=== PATIENT | female | born 1985 | race Caucasian/White ===

== ENCOUNTER → 2017-02-28 | Outpatient (CLI) | payer BC ==
[~2017-02-28] MED LIST: BIRTH CONTROL PILL; CEFD300C PO; NORG1TAB15 PO; PHEN-483 PO
[2017-02-28 15:39] VITALS: BP 146/98
--- NOTE | 2017-02-28 15:39 | Urgent Care T Sheet Gen (E) ---
Intake General Temperature (Fahrenheit): 98.1 Pulse: 123 Blood Pressure Systolic: 146 Blood Pressure Diastolic: 98 (took decongestant without taking her daily BP med ) Respirations: 20 SPO2: 96 Description of Symptoms Patient presents with illness for over a week. Notes nasal congestion, sweating , malaise and mild cough. No documented fever but has felt warm. Been taking Mucinex D and NyQuil. Didn't take her bisoprolol med this AM but took Mucinex D. History of Present Illness Allergies: Coded Allergies: No Known Drug Allergies (Unverified , 10/28/14) Home Meds Reported Medications Norgestimate-Ethinyl Estradiol (Tri-Sprintec)1 Each Tablet1 Tab PO DAILY 10/29/14 Respiratory Constitutional Symptoms: No Fever, Malaise EENTM: Nose Congestion Throat pain Respiratory: Cough Cardiovascular: No symptoms reported Gastrointestinal/Abdominal: No symptoms reported All Other Systems Reviewed Remaining Systems: All other systems reviewed with negative findings Past Nmhvgwq-Tzcpan-Lrepju Hx Patient's Social History Infectious Disease Exposure: No Recent foreign travel: No Surgeries/Hospitalizations Hospitalization/Surgery Hx: in 2008 Respiratory Respiratory History: None Cardiovascular Cardiovascular History: Hypertension Neuro/Muscular Neuro/Muscular History: None Reproductive System Sexually Transmitted Diseases: No Genitouinary Genitourinary History: None Gastrointestinal GI/Endocrine History: None Diabetes Diabetes: No HEENT Impaired Vision: None Hearing Impaired: None Integumentary Integumentary History: None Cancer History of Cancer?: No Psychosocial Behavior Disorders: None Blood Transfusions Hx of Blood transfusions: No Physical Exam Physical Exam General Appearance: WD/WN No apparent distress Eyes, Ears, Nose, Throat Ex: TMs normal (air fluid bubbles) Pharyngeal erythema (cobblestone appearance) Other (red, swollen nasal turbinates with thick drainage, R worse than L; tender over frontal sinuses) Neck Exam: Supple Lymphadenopathy Respiratory Exam: Lungs clear Normal breath sounds Cardiovascular Exam: Regular rate, rhythm Departure Urgent Care Impression Impression: Primary Impression: Sinusitis Qualified Code: J01.10 - Acute frontal sinusitis, unspecified Departure Disposition: HOME OR SELF-CARE Condition: Stable Referrals: ALON AQUINO MD (PCP) Additional Instructions: I have started the patient on Omnicef for treatment. DC the OTC cold meds as they are increasing her BP Resume taking her Bisoprolol Rest. Fluids Return as needed Patient understands DC instructions. All questions were answered. Scripts Cefdinir 300 Mg [id number] Mg PO BID #[id number] CAP Prov:LANCE REHMAN 02/28/17 End of report . LANCE REHMAN February 28, 2017 15:39
== END ==
LOC: MHUC 15:21
PROVIDERS: ATTEND Physician Assistant
DX: J01.10 Acute frontal sinusitis, unspecified (principal)
CPT/HCPCS: 99213